=== PATIENT | female | born 1995 | race Caucasian/White ===

== ENCOUNTER 2018-12-09 15:59 | Day surgery (SDC) | payer OTHER ==
[2018-12-09 16:50] VITALS: BMI 29.0
--- NOTE | 2018-12-09 18:15 | PRG ---
DATE OF SERVICE: 12/09/2018 TIME OF SERVICE: 1715 hours. PRESENTING COMPLAINT: Mid epigastric pain for approximately 30 minutes at home, now relieved spontaneously. HISTORY OF PRESENT ILLNESS: is a 23-year-old, 1, para 0, at 20 weeks, who sees Dr. Arteaga at [facility] in [place] for her . She lives in [place], [place]. She reports that she has had GI distress throughout her and is taking Zantac 75 every few days. She states that she had a sudden onset of mid epigastric pain for about 30 minutes that was up to 9/10. She denied vomiting. She reports activity. She denies fever or chills. She states that the pain relieved itself on the way to the hospital from [place]. FILBERT GROWER HISTORY: None. No antepartum record available. PAST MEDICAL HISTORY: None. PAST SURGICAL HISTORY: None. ALLERGIES: DENIES. MEDICATIONS: vitamins. SOCIAL HISTORY: Denies tobacco, alcohol, or drug abuse. FAMILY HISTORY: Noncontributory. REVIEW OF SYSTEMS: Noncontributory. PHYSICAL EXAMINATION: GENERAL: White female, in no acute distress. VITAL SIGNS: Blood pressure 126/72, pulse 86, respirations 20, temperature 98.0. HEENT: Within normal limits. LUNGS: Clear to auscultation bilaterally. HEART: Regular rhythm. ABDOMEN: Soft, nontender. I am not able to elicit mid epigastric tenderness at this time. No CVA tenderness noted. FHTs are 160s. Fundal height is 21 cm. EXTREMITIES: Without clubbing, cyanosis, or edema. IMPRESSION: Acute mid epigastric pain consistent with acid reflux. It is possible the patient has chronic gastritis that may be due to reflux or may also be secondary to Helicobacter pylori. However, the patient's primary physician for this is in [place] and I do not have contact info to send laboratory results if obtained today. PLAN: Recommend that the patient to follow up in the next week with MD in [place] and discuss her conditions and possible need for H pylori testing. ER precautions. Follow up as needed. Job ID: [id number]
== END 2018-12-09 17:35 | disposition home or self-care (01) ==
LOC: L&D/OP 15:59
PROVIDERS: ATTEND Obstetrics & Gynecology
DX: O99.89 Other specified diseases and conditions complicating pregnancy, childbirth and the puerperium (principal); R10.13 Epigastric pain; Z3A.20 20 weeks gestation of pregnancy; Z91.013 Allergy to seafood
CPT/HCPCS: 99282